=== PATIENT | female | born 2000 | race Hispanic/Latino ===

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

== ENCOUNTER 2022-04-12 16:15 | Outpatient (CLI) | payer OTHER | END 2022-04-12 16:16 | disposition home or self-care (01) | LOC: BICRAD 16:15 | PROVIDERS: ATTEND Clinical Nurse Specialist Adult Health | DX: M25.561 Pain in right knee (principal) ==

== ENCOUNTER 2022-06-06 15:16 | Emergency (ER) | payer OTHER ==
[2022-06-06] MEDS ORDERED: HYDROcodone/Acetaminophen 5/325 mg Tablet ONE (16:15)
[2022-06-06] MEDS ORDERED: Ibuprofen 200 MG TAB ONE (16:15)
== END 2022-06-06 16:35 | disposition home or self-care (01) ==
LOC: ERS 15:16
DX: S01.512A Laceration without foreign body of oral cavity, initial encounter (principal)
CPT/HCPCS: 99282